=== PATIENT | male | born 1995 | race Caucasian/White ===

== ENCOUNTER 2020-02-24 20:45 | Emergency (ER) | payer OTHER ==
[~2020-02-24] VITALS: Ht 182.9 cm; Wt 71.5 kg
[2020-02-24 20:45] VITALS: BP 132/73
[2020-02-24] MEDS ORDERED: LIDOCAINE 1% MDV 20ML VIAL SC ONE (22:00)
== END 2020-02-24 23:22 | disposition home or self-care (01) ==
LOC: M ED 20:45
DX: S01.511A Laceration without foreign body of lip, initial encounter (principal); W00.0XXA Fall on same level due to ice and snow, initial encounter; Y92.019 Unspecified place in single-family (private) house as the place of occurrence of the external cause; Y93.K1 Activity, walking an animal; Y99.9 Unspecified external cause status